=== PATIENT | female | born 1985 | race Caucasian/White ===

== ENCOUNTER 2020-12-31 03:00 | Emergency (ER) | payer OTHER, SELFPAY | END 2020-12-31 06:30 | LOC: HO.ED 08:08 | PROVIDERS: Emergency Provider Internal Medicine; PCP Internal Medicine | DX: F19.10 Other psychoactive substance abuse, uncomplicated (principal); F11.20 Opioid dependence, uncomplicated; F17.200 Nicotine dependence, unspecified, uncomplicated | CPT/HCPCS: 96372; 99284 ==